=== PATIENT | male | born 1985 | race Caucasian/White ===

== ENCOUNTER 2022-05-11 16:13 | Emergency (ER) | payer OTHER ==
[~2022-05-11] VITALS: Ht 177.8 cm; Wt 95.3 kg
[2022-05-11] MEDS ORDERED: CEFTRIAXONE 500 MG VIAL IM ONE (16:30)
[2022-05-11] MEDS ORDERED: DOXYCYCLINE HYCLATE (100 MG) 100 MG TABLET PO ONE (16:30)
[2022-05-11] MEDS ORDERED: IV NS 0.9% 1,000 ML BAG IV ONE (16:30)
--- NOTE | 2022-05-11 16:30 | NUR ---
PT [facility] FOR MEDICAL CLEARANCE S/P "SYNCOPAL EPISODE" PER REPORT PT WAS ASSISTED TO THE GROUND. NO OBVIOUS TRAUMA NOTED TRAIN ENGINEER. STABLE VITALS. AWAITING MD ELKINS.
--- NOTE | 2022-05-11 16:34 | NUR ---
TOMMIE BOOKER AT BEDSIDE FOR EVAL.
[2022-05-11] MEDS ORDERED: DOXY100C2 PO (16:45)
--- NOTE | 2022-05-11 16:45 | NUR ---
IV LINE IS ESTABLISHED, BLOOD SPECIMEN COLLECTED AND SENT TO THE LAB. THE LINE IS SALINE LOCKED.
[2022-05-11] MEDS ORDERED: CEFTRIAXONE 500 MG VIAL ONE (16:53)
[2022-05-11] MEDS ORDERED: DOXYCYCLINE HYCLATE (100 MG) 100 MG TABLET ONE (16:53)
[2022-05-11] MEDS ORDERED: LIDOCAINE /MPF 1% VIAL 5 ML VIAL ONE (16:54)
--- NOTE | 2022-05-11 17:08 | NUR ---
URINE COLLECTED AND SENT TO THE LAB
[2022-05-11 17:30] LABS: BILIRUBIN,URINE SMALL (NEGATIVE); COLOR,URINE YELLOW (YELLOW); LEUKOCYTE ESTERASE ,URINE NEGATIVE (NEGATIVE); NITRITE, URINE NEGATIVE (NEGATIVE); PROTEIN,URINE 30 mg/dl (NEGATIVE); UGLUCOSE NEGATIVE (NEGATIVE); UROBILINOGEN,URINE 0.2 EU/dL (0.2)
[2022-05-11 17:41] LABS: BACTERIA,URINE Few /HPF (None Seen); RBC,URINE 0-2 /HPF (0-2); SQUAMOUS EPITHELIAL CELL,UR Few /HPF (None Seen); WBC,URINE 0-2 /HPF (0-3)
--- NOTE | 2022-05-11 19:13 | NUR ---
REPORT GIVEN TO NURSE BULL FOR PAYAL
[2022-05-11 19:32] LABS: CALCIUM, SERUM 9.5 mg/dL (8.5-10.1); GLUCOSE 95 mg/dL (74-106); UREA NITROGEN, BLOOD 15 mg/dL (7-18)
[2022-05-11 19:39] LABS: ALANINE AMINOTRANSFERASE 44 U/L (12-78); ALBUMIN 4.5 g/dL (3.4-5.0); ALKALINE PHOSPHATASE 54 U/L (46-116); ASPARTATE AMINOTRANSFERASE 21 U/L (15-37); BILIRUBIN,DIRECT 0.1 mg/dL (0.0-0.2); TOTAL PROTEIN, SERUM 8.5 g/dL (6.4-8.2)
--- NOTE | 2022-05-11 19:45 | NUR ---
RECEIVED REPORT FROM MYRNA ARAGON. PATIENT CAME WITH CC OF [facility]. PATIENT IS AAOX4, -CP, -SOB. WITH PERIPHERAL LINE ON LEFT AC G20. ABLE TO MAKE NEEDS KNOWN. VITALS CHECKED. PATIENT IS JUST WAITING FOR LAB RESULTS AND WILL BE GOING BACK TO SNF IF EVERYTHING IS OK.
--- NOTE | 2022-05-11 20:10 | NUR ---
LAB AT BEDSIDE
[2022-05-11 20:17] LABS: BASOPHILS % (AUTO) 0.5 % (0.0-2.0); EOSINOPHILS % (AUTO) 0.4 % (0.0-6.0); HEMATOCRIT 50 % (39-51); HEMOGLOBIN 16.2 g/dL (13.5-17.5); LYMPHOCYTES # (AUTO) 1.3 K/uL (0.8-4.8); MEAN CORPUSCULAR HGB CONC 33 g/dl (31.0-36.0); MEAN CORPUSCULAR VOLUME 94 fL (80-96); MONOCYTES # (AUTO) 0.8 K/uL (0.1-1.30); MONOCYTES % (AUTO) 11.7 % (2.0-12.0); NEUTROPHILS # (AUTO) 4.5 K/uL (1.8-8.9); NEUTROPHILS % (AUTO) 67.4 % (43.0-81.0); PLATELET COUNT (AUTO) 270 K/uL (150-450); RED BLOOD CELL COUNT(AUTO) 5.28 MIL/uL (4.5-6.0); WHITE BLOOD COUNT (AUTO) 6.7 K/uL (4.3-11.0)
[2022-05-11 21:34] LABS: SODIUM SERUM 141 mmol/L (136-145)
[2022-05-11 21:35] LABS: CARBON DIOXIDE 23 mmol/L (21-32); CHLORIDE 102 mmol/L (98-107)
--- NOTE | 2022-05-11 21:37 | NUR ---
IV removed. Catheter intact and site benign. Pressure and 4x4 applied to site. No bleeding noted.Patient discharged to home in stable condition. Written and verbal after care instructions given. Patient verbalizes understanding of instruction.
[2022-05-11 23:27] VITALS: BP 138/82
== END 2022-05-11 21:40 ==
LOC: ER 16:22
DX: R55 Syncope and collapse (principal); F41.0 Panic disorder [episodic paroxysmal anxiety]; F32.A Depression, unspecified; F10.10 Alcohol abuse, uncomplicated; F12.90 Cannabis use, unspecified, uncomplicated; Z59.00 Homelessness unspecified; Y90.9 Presence of alcohol in blood, level not specified
CPT/HCPCS: 99284; 96360; 93005; 85025; 80048; 80076; 81001; 36415; 87491; 87591; 84132; 96372; J0696; J7030; J3490